=== PATIENT | female | born 1960 | race Two or more races ===

== ENCOUNTER 2017-02-13 07:31 | Emergency (ER) | payer MEDICAID, OTHER ==
[~2017-02-13] VITALS: Ht 160 cm; Wt 85.7 kg
[~2017-02-13 07:31] MED LIST: HYDROCHLOROTHIA25 MG ORAL; NORVASC10 MG ORAL; bactrim PO
[2017-02-13] MEDS ORDERED: LISINOPRIL10 MG ORAL (07:45)
[2017-02-13] MEDS ORDERED: POTASSIUM CHLO20 ME1 ORAL (07:47)
[2017-02-13] MEDS ORDERED: METFORMIN HCL1000 M1 ORAL (07:47)
[2017-02-13] MEDS ORDERED: Famotidine 20 MG/ 2ML VIAL IVP ONE (08:00)
--- NOTE | 2017-02-13 08:03 | Emergency Room Report ---
History of Present Illness General Chief Complaint: Abdominal Pain Source: Patient Present Illness HPI Patient 56-year-old female who presented after increased epigastric pain. Pain had been constant in nature. The pain is described as a sharp poking sensation. She had associated nausea. Pain had been present for 2 days and did not radiate. She denied any black or bloody stools. Patient stated that she been having some improvement with food. She denied prior abdominal surgeries other than fibroid removal. Allergies: Coded Allergies: No Known Allergies (Unverified , 04/05/15) Patient History Past Medical History: see triage record, DM, HTN Reviewed Nursing Documentation: PMH: Agreed, PSxH: Agreed Nursing Documentation-PMH Past Medical History: No History, Except For Hx Hypertension: Yes Review of Systems All Other Systems: negative except mentioned in HPI Physical Exam Vital Signs Date Time Temp Pulse Resp B/P Pulse Ox O2 Delivery O2 Flow Rate FiO2 02/13/17 07:34 97.7 102 16 205/126 98 Room Air Sp02 EP Interpretation: reviewed, normal General Appearance: normal inspection, well appearing, alert, GCS 15 Head: atraumatic ENT: normal ENT inspection, hearing grossly normal, normal voice Neck: normal inspection, full range of motion, supple, no bony tend Respiratory: normal inspection, lungs clear, normal breath sounds, no respiratory distress, no retraction, no wheezing Cardiovascular #1: regular rate, rhythm, no edema Gastrointestinal: normal bowel sounds, no guarding, no hernia, tenderness - epigastric Genitourinary: no CVA tenderness Musculoskeletal: normal inspection, back normal, normal range of motion Neurologic: normal inspection, alert, oriented x3, responsive, plumbing drafter III-XII nml as tested, speech normal Psychiatric: normal inspection, judgement/insight normal, mood/affect normal Skin: normal inspection, normal color, no rash Medical Decision Making Diagnostic Impression: Primary Impression: Gallstones Additional Impression: Hypertension ER Course Patient presented for abdominal pain. Differential diagnoses included ischemic bowel, appendicitis, perforated viscus, abdominal aortic aneurysm, inferior myocardial infarction, viral gastroenteritis Because of complexity of patient's case laboratory testing and imaging studies were ordered. EKG interpretation normal sinus rhythm with a rate of [address] or T wave changes. Patient was given IV Unasyn. She was given morphine for pain. Patient was discussed withThe patient was discussed with Dr. Madrigal who agreed to accept the patient in transfer. Labs Test 5/26/17 07:49 02/13/17 08:29 White Blood Count 7.2 K/UL (4.8-10.8) Red Blood Count 5.48 M/UL (4.20-5.40) Hemoglobin 15.6 G/DL (12.0-16.0) Hematocrit 45.6 % (37.0-47.0) Mean Corpuscular Volume 83 FL (80-99) Mean Corpuscular Hemoglobin 28.4 PG (27.0-31.0) Mean Corpuscular Hemoglobin Concent 34.1 G/DL (32.0-36.0) Red Cell Distribution Width 12.0 % (11.6-14.8) Platelet Count 289 K/UL (150-450) Mean Platelet Volume 7.5 FL (6.5-10.1) Neutrophils (%) (Auto) 65.0 % (45.0-75.0) Lymphocytes (%) (Auto) 25.3 % (20.0-45.0) Monocytes (%) (Auto) 6.4 % (1.0-10.0) Eosinophils (%) (Auto) 2.2 % (0.0-3.0) Basophils (%) (Auto) 1.1 % (0.0-2.0) Prothrombin Time 9.7 SEC (9.30-11.50) Prothromb Time International Ratio 1.0 (0.9-1.1) Activated Partial Thromboplast Time 26 SEC (23-33) Sodium Level 135 mEQ/L (135-145) Potassium Level 3.9 mEQ/L (3.4-4.9) Chloride Level 94 mEQ/L (98-107) Carbon Dioxide Level 25 mEQ/L (20-30) Anion Gap 16 (5-15) Blood Urea Nitrogen 11 mg/dL (7-23) Creatinine 0.6 mg/dL (0.5-0.9) Estimat Glomerular Filtration Rate > 60 mL/min (>60) Glucose Level 392 mg/dL (74-106) Calcium Level 10.9 mg/dL (8.6-10.2) Total Bilirubin 0.6 mg/dL (0.0-1.2) Aspartate Amino Transf (AST/SGOT) 36 U/L (5-40) Alanine Aminotransferase (ALT/SGPT) 52 U/L (3-33) Alkaline Phosphatase 159 U/L (35-104) Troponin I < 0.30 ng/mL (<=0.30) Total Protein 7.7 g/dL (6.6-8.7) Albumin 4.1 g/dL (3.5-5.2) Globulin 3.6 g/dL Albumin/Globulin Ratio 1.1 (1.0-2.7) Lipase 46 U/L (< 60) Urine Color Pale yellow Urine Appearance Clear Urine pH 5 (4.5-8.0) Urine Specific [place] 1.020 (1.005-1.035) Urine Protein Negative (NEGATIVE) Urine Glucose (UA) 4+ (NEGATIVE) Urine Ketones 1+ (NEGATIVE) Urine Occult Blood Negative (NEGATIVE) Urine Nitrite Negative (NEGATIVE) Urine Bilirubin Negative (NEGATIVE) Urine Urobilinogen Normal MG/DL (0.0-1.0) Urine Leukocyte Esterase 1+ (NEGATIVE) Urine RBC 0-2 /HPF (0 - 2) Urine WBC 5-10 /HPF (0 - 2) Urine Squamous Epithelial Cells Few /LPF (NONE/OCC) Urine Bacteria Few /HPF (NONE) Last Vital Signs Date Time Temp Pulse Resp B/P Pulse Ox O2 Delivery O2 Flow Rate FiO2 02/13/17 07:59 99 207/102 02/13/17 07:34 97.7 16 98 Room Air Status: unchanged Disposition: XF SHT-TRM HOSP Condition: Stable Kofi Garcia February 13, 2017 08:03
[2017-02-13 08:08] LABS: PROTHROMBIN TIME 9.7 SEC (9.30-11.50)
[2017-02-13 08:11] LABS: ALANINE AMINOTRANSFERASE 52 U/L (3-33); ALBUMIN/GLOBULIN RATIO 1.1 (1.0-2.7); ANION GAP 16 (5-15); ASPARTATE AMINO TRANSFERASE 36 U/L (5-40); BASOPHILS % (AUTO) 1.1 % (0.0-2.0); CALCIUM 10.9 mg/dL (8.6-10.2); CARBON DIOXIDE 25 mEQ/L (20-30); CHLORIDE 94 mEQ/L (98-107); CREATININE 0.6 mg/dL (0.5-0.9); EOSINOPHILS % (AUTO) 2.2 % (0.0-3.0); GLOMERULAR FILTRATION RATE > 60 mL/min (>60); HEMOLYSIS 23; LIPASE 46 U/L (< 60); LYMPHOCYTES % (AUTO) 25.3 % (20.0-45.0); MEAN CORPUSCULAR HEMOGLOBIN 28.4 PG (27.0-31.0); MEAN CORPUSCULAR HGB CONC 34.1 G/DL (32.0-36.0); MEAN CORPUSCULAR VOLUME 83 FL (80-99); MEAN PLATELET VOLUME 7.5 FL (6.5-10.1); MONOCYTES % (AUTO) 6.4 % (1.0-10.0); PLATELET COUNT 289 K/UL (150-450); POTASSIUM 3.9 mEQ/L (3.4-4.9); RED BLOOD COUNT 5.48 M/UL (4.20-5.40); SODIUM 135 mEQ/L (135-145); TOTAL PROTEIN 7.7 g/dL (6.6-8.7); WHITE BLOOD COUNT 7.2 K/UL (4.8-10.8)
[2017-02-13 08:12] LABS: TROPONIN I < 0.30 ng/mL (<=0.30)
[2017-02-13 08:31] VITALS: BP 168/93
[2017-02-13 08:50] LABS: APPEARANCE,URINE CLEAR; KETONES,URINE 1+ (NEGATIVE); LEUKOCYTE ESTERASE ,URINE 1+ (NEGATIVE); NITRITE,URINE NEGATIVE (NEGATIVE); PH,URINE 5 (4.5-8.0); PROTEIN,URINE NEGATIVE (NEGATIVE); UROBILINOGEN,URINE NORMAL MG/DL (0.0-1.0)
[2017-02-13] MEDS ORDERED: Morphine Sulfate 4mg/ml Inj IVP ONE ×2 (09:15→09:45)
[2017-02-13 09:25] VITALS: BP 172/94
[2017-02-13 09:25] LABS: BACTERIA,URINE FEW /HPF; RBC,URINE 0-2 /HPF (0 - 2); SQUAMOUS EPITHELIAL CELL,UR FEW /LPF (NONE/OCC)
[2017-02-13] MEDS ORDERED: Unasyn 3gm Inj ONE (09:49)
--- NOTE | 2017-02-13 09:58 | Diagnostic Imaging Report ---
Clinical Indication: Epigastric pain, does not radiate Technique: No oral contrast utilized, per emergency room physician request IV administration nonionic contrast. Venous phase spiral acquisition obtained through the abdomen and pelvis. Multiplanar reconstructions were generated. Total dose length product 964 mGycm. CTDIvol(s) 19 mGy. Dose reduction achieved using automated exposure control Comparison: None Findings: The gallbladder contains a gallstone. There is equivocal edema of the gallbladder wall, although this could in part be artifactual due to slight degree of respiratory motion artifact. No biliary ductal dilatation. The liver is diffusely hypoattenuating, consistent with fatty change. There is a nonspecific 12 mm low-attenuation lesion within the anterior left hepatic lobe. The pancreas, spleen, adrenals, kidneys are unremarkable. No retroperitoneal or mesenteric mass or adenopathy. No pelvic mass or adenopathy. The uterus is not visualized, presumably surgically absent. A 2.3 cm cyst is deep to the umbilicus. This demonstrates slight wall thickening but no surrounding inflammation. The appendix is not definitely visualized, but no findings to suggest acute appendicitis are evident. No evidence of diverticulosis or diverticulitis. No small bowel distention. No free or loculated intraperitoneal air or fluid is evident. The distal esophagus, stomach, duodenum are unremarkable. There is a 3 mm noncalcified nodule at the left lung base posteriorly, and a 5 mm noncalcified nodule at the left lung base anteriorly. There are degenerative changes of the thick and lumbar spine. Impression: Cholelithiasis. Equivocal edema of the gallbladder wall. If real, this could indicate acute cholecystitis. Correlate with clinical findings, consider nuclear medicine hepatobiliary scan for further evaluation Diffusely hypoattenuating liver, consistent with fatty change Nonspecific 12 mm anterior left hepatic lobe low-attenuation lesion. Recommend further evaluation with ultrasound to determine cystic or solid 2.3 cm cyst deep to the umbilicus, presumably a urachal cyst. Probably not infected, given the absence of surrounding fat stranding, but infection not completely excludable given the presence of mild wall thickening 2 noncalcified nodules in the left lung base. If there is no significant smoking history, no further followup is necessary. If there is significant smoking history or other risk factors for lung carcinoma, then short interval followup at 6-12 months is recommended Incidental finding degenerative spondylosis The CT scanner at [facility] is accredited by the [employer] and the scans are performed using protocols designed to limit radiation exposure to as low as reasonably achievable to attain images of sufficient resolution adequate for diagnostic evaluation.
[2017-02-13] MEDS ORDERED: Ampicillin/Sulbactam Sod 3 GM in NS 110 ML IVPB ONE (10:00)
[2017-02-13] MEDS ORDERED: metFORMIN 500mg tab ORAL ONE ×2 (10:00→11:30)
[2017-02-13 10:26] VITALS: BP 172/94
== END 2017-02-13 11:01 | disposition short-term general hospital (02) ==
LOC: EMR 08:13
DX: K80.20 Calculus of gallbladder without cholecystitis without obstruction (principal); I10 Essential (primary) hypertension; E11.9 Type 2 diabetes mellitus without complications
CPT/HCPCS: 36415; 74177; 80053; 81003; 82962; 83690; 84484; 85025; 85610; 85730; 93005; 96360; 96374; 96375; 99285; J0295; J2270; J2405; Q9967; S0028

== ENCOUNTER 2018-01-31 00:10 | Emergency (ER) | payer MEDICAID ==
[~2018-01-31] VITALS: Ht 165.1 cm; Wt 81.6 kg
[~2018-01-31 00:10] MED LIST changes: +LISINOPRIL10 MG ORAL; +METFORMIN HCL1000 M1 ORAL; +POTASSIUM CHLO20 ME1 ORAL
[2018-01-31] MEDS ORDERED: CATAPRES0.1 MG ORAL (00:30)
[2018-01-31] MEDS ORDERED: JANUVIA100 MG ORAL (00:30)
[2018-01-31] MEDS ORDERED: ZOCOR10 MG ORAL (00:30)
[2018-01-31] MEDS ORDERED: INSULIN SUBQ (00:31)
[2018-01-31] MEDS ORDERED: Morphine Sulfate 4mg/ml Inj IVP ONE (01:00)
[2018-01-31] MEDS ORDERED: Vancomycin 1.5gm/D5W 250ml 250 ML IVPB ONE (01:00)
[2018-01-31] MEDS ORDERED: Cefepime HCl 1 GM in D5W 55 ML IVPB ONE (01:00)
--- NOTE | 2018-01-31 01:14 | Emergency Room Report ---
History of Present Illness General Chief Complaint: Abdominal Pain Source: Patient Present Illness HPI Is a 57-year-old female with history of high blood pressure and previous tubal ligation. She presents with chief complaint of redness and drainage from her umbilicus. Onset for last 3 days. This is a on and off problem for her. Last time was 2 years ago. Started out as redness around the umbilical area. Today with increasing pain and redness. Also with drainage. Pain is 10 out of 10. No nausea no vomiting. No fever chills. Worse with palpation. Was told that she had a fistula before. Allergies: Coded Allergies: No Known Allergies (Unverified , 04/05/15) Patient History Past Medical History: see triage record, old chart reviewed Past Surgical History: other Pertinent Family History: none Social History: Denies: smoking Now: No Immunizations: other Reviewed Nursing Documentation: PMH: Agreed; PSxH: Agreed Nursing Documentation-PMH Hx Hypertension: Yes Hx Diabetes: Yes Review of Systems Eye: Denies: eye pain, blurred vision ENT: Denies: ear pain, nose congestion, throat swelling Respiratory: Denies: cough, shortness of breath Cardiovascular: Denies: chest pain, palpitations Gastrointestinal: Reports: abdominal pain; Denies: diarrhea, nausea, vomiting Musculoskeletal: Denies: back pain, joint pain Skin: Denies: rash Neurological: Denies: headache, numbness Endocrine: Denies: increased thirst, increased urine Hematologic/Lymphatic: Denies: easy bruising All Other Systems: negative except mentioned in HPI Physical Exam Vital Signs Date Time Temp Pulse Resp B/P (MAP) Pulse Ox O2 Delivery O2 Flow Rate FiO2 01/31/18 00:21 98.1 102 20 182/98 96 Room Air 98.1 vitals with high blood pressure Sp02 EP Interpretation: reviewed, normal General Appearance: well appearing, no apparent distress, alert Head: normocephalic, atraumatic Eyes: bilateral eye PERRL, bilateral eye EOMI ENT: hearing grossly normal, normal pharynx Neck: full range of motion, supple, no meningismus Respiratory: chest non-tender, lungs clear, normal breath sounds Cardiovascular #1: regular rate, rhythm, no murmur Gastrointestinal: normal bowel sounds, no mass, no organomegaly, no bruit, non- distended, other - There is erythema from the inferior aspect of the umbilicus distally to about 5-6 cm. There is purulent discharge from the umbilicus. Tender to palpation. Musculoskeletal: back normal, gait/station normal, normal range of motion Psychiatric: mood/affect normal Skin: warm/dry Procedures Incision and Drainage Incision and Drainage : Consent: Verbal Site: umbilicus I & D Procedure: betadine prep, sterile drapes applied, sterile dressing applied, gauze wick placed Wound Location: abdomen Irrigated w/ Saline (ccs): 500 Anesthesia: 1% Lidocaine Volume Anesthetic (ccs): 5 Patient Tolerated: Well Complications: None Progress Area around the umbilicus cleaned with chlorhexidine. Local anesthesia with 1% lidocaine without epinephrine injected. I made a 2 cm incision. I was able to express small amount of pus. Area irrigated and then packed with iodoform gauze. Patient tolerated procedure without a problem. Medical Decision Making Diagnostic Impression: Primary Impression: Cutaneous abscess of umbilicus Additional Impression: Hyperglycemia due to type 1 diabetes mellitus ER Course Patient with abscess and cellulitis of the umbilicus area. No deep infection. No fistula. No free fluid. Abscess is cutaneous. Her glucose is elevated because she has not taken any insulin for the last 2 days because of the pain. No evidence of DKA. Since there is no deep abscess and labs unremarkable, we' ll discharge home. Her cellulitis is improving after antibiotics. When she was getting IV vancomycin, her face broke out in a flush. Better after I stopped the vancomycin and put her on Benadryl. Since she improved with cefepime I will stop the vancomycin for now. Lab Results Impression labs with elevated glucose CT/MRI/US Diagnostic Results CT/MRI/US Diagnostic Results : Imaging Test Ordered: CT abdomen and pelvis Impression Read by radiologist. No deep infection. Gallstone. Small pocket of fluid with peripheral enhancement at the umbilicus. Cannot exclude abscess. Last Vital Signs Date Time Temp Pulse Resp B/P (MAP) Pulse Ox O2 Delivery O2 Flow Rate FiO2 01/31/18 00:21 98.1 102 20 182/98 96 Room Air 98.1 Status: improved Disposition: HOME, SELF-CARE Condition: Stable Scripts Hydrocodone/Acetaminophen 5-325* (HYDROCODONE/ACETAMINOPHEN 5-325*) 1 Each Tablet 1 TAB ORAL Q6H PRN for For Pain, #15 TAB 0 Refills Prov: REBEKA LYN M.D. 01/31/18 Clindamycin Hcl (CLINDAMYCIN HCL) 300 Mg Capsule 300 MG ORAL THREE TIMES A DAY, #21 CAP Prov: REBEKA LYN M.D. 01/31/18 Additional Instructions: follow-up with your Dr. Or return here in 2 days for recheck. Return sooner if worse. REBEKA LYN M.D. January 31, 2018 01:14
[2018-01-31] MEDS ORDERED: Isovue-300 100ml vial INJ PRN (01:15)
[2018-01-31 01:50] LABS: APPEARANCE,URINE CLEAR; BILIRUBIN, URINE NEGATIVE (NEGATIVE); COLOR,URINE PALE YELLOW; GLUCOSE, URINE (UA) 4+ (NEGATIVE); KETONES,URINE NEGATIVE (NEGATIVE); LEUKOCYTE ESTERASE ,URINE 1+ (NEGATIVE); NITRITE,URINE NEGATIVE (NEGATIVE); PH,URINE 6 (4.5-8.0); PROTEIN,URINE NEGATIVE (NEGATIVE); UROBILINOGEN,URINE NORMAL MG/DL (0.0-1.0)
[2018-01-31 01:57] LABS: BASOPHILS % (AUTO) 0.9 % (0.0-2.0); EOSINOPHILS % (AUTO) 1.3 % (0.0-3.0); HEMOGLOBIN 14.4 G/DL (12.0-16.0); LYMPHOCYTES % (AUTO) 27.3 % (20.0-45.0); MEAN CORPUSCULAR VOLUME 83 FL (80-99); MONOCYTES % (AUTO) 6.8 % (1.0-10.0); NEUTROPHILS % (AUTO) 63.8 % (45.0-75.0); PLATELET COUNT 263 K/UL (150-450); RED BLOOD COUNT 4.95 M/UL (4.20-5.40); RED CELL DISTRIBUTION WIDTH 12.1 % (11.6-14.8); WHITE BLOOD COUNT 8.1 K/UL (4.8-10.8)
[2018-01-31 02:00] LABS: ANION GAP 9 mmol/L (5-15); BLOOD UREA NITROGEN 11 mg/dL (7-18); CARBON DIOXIDE 26 MMOL/L (21-32); CHLORIDE 101 MMOL/L (98-107); CREATININE 0.7 MG/DL (0.55-1.30); POTASSIUM 4.1 MMOL/L (3.5-5.1); SODIUM 136 MMOL/L (136-145)
[2018-01-31 02:03] LABS: INR 0.9 (0.9-1.1)
[2018-01-31 02:06] LABS: ALANINE AMINOTRANSFERASE 48 U/L (12-78); ALBUMIN 3.6 G/DL (3.4-5.0); ALBUMIN/GLOBULIN RATIO 0.8 (1.0-2.7); ALKALINE PHOSPHATASE 158 U/L (46-116); ASPARTATE AMINO TRANSFERASE 20 U/L (15-37); BILIRUBIN,TOTAL 0.6 MG/DL (0.2-1.0)
[2018-01-31 02:15] VITALS: BP 166/94
[2018-01-31] MEDS ORDERED: Morphine Sulfate 10mg/ml Inj IVP ONE (03:30)
--- NOTE | 2018-01-31 03:31 | Diagnostic Imaging Report ---
EXAM: CT Abdomen and Pelvis With Intravenous Contrast CLINICAL HISTORY: ABD PAIN TECHNIQUE: Axial computed tomography images of the abdomen and pelvis with intravenous contrast. CTDI is 30 mGy and DLP is 1577 mGy-cm. One or more of the following dose reduction techniques were used: automated exposure control, adjustment of the mA and/or kV according to patient size, use of iterative reconstruction technique. COMPARISON: No relevant prior studies available. FINDINGS: Lung bases: Unremarkable. No mass. No consolidation. ABDOMEN: Liver: Hepatomegaly. Gallbladder and bile ducts: Cholelithiasis. No ductal dilation. Pancreas: Unremarkable. No mass. No ductal dilation. Spleen: Unremarkable. No splenomegaly. Adrenals: Unremarkable. No mass. Kidneys and ureters: Possible punctate nonobstructing right renal stone. Stomach and bowel: Unremarkable. No obstruction. No mucosal thickening. PELVIS: Appendix: No findings to suggest acute appendicitis. Bladder: Unremarkable. No mass. Reproductive: Unremarkable as visualized. ABDOMEN and PELVIS: Intraperitoneal space: Unremarkable. No free air. No significant fluid collection. Bones/joints: No acute fracture. No dislocation. Soft tissues: Small pocket of fluid with peripheral enhancement at the umbilicus. Vasculature: Unremarkable. No abdominal aortic aneurysm. Lymph nodes: Unremarkable. No enlarged lymph nodes. IMPRESSION: 1. Cholelithiasis. 2. Possible punctate nonobstructing right renal stone. 3. Small pocket of fluid with peripheral enhancement at the umbilicus. Cannot exclude abscess.
[2018-01-31 04:12] VITALS: BP 154/85
[2018-01-31] MEDS ORDERED: DiphenhydrAMINE 50mg/ml Inj IVP ONE (04:15)
[2018-01-31] MEDS ORDERED: HYDROCODON-ACE1 EA15 ORAL (04:42)
[2018-01-31] MEDS ORDERED: CLINDAMYCIN HC300 MG ORAL (04:42)
[2018-01-31 04:55] VITALS: BP 154/85
== END 2018-01-31 04:55 | disposition home or self-care (01) ==
LOC: EMR 01:54
DX: L02.216 Cutaneous abscess of umbilicus (principal); E10.65 Type 1 diabetes mellitus with hyperglycemia; I10 Essential (primary) hypertension; K80.20 Calculus of gallbladder without cholecystitis without obstruction
CPT/HCPCS: 10060; 36415; 74177; 80053; 81003; 82962; 83605; 85025; 85610; 85730; 87040; 87070; 87086; 87205; 96374; 96375; 99284; J0692; J1200; J1815; J2270; J2405; J3370; Q9967

== ENCOUNTER 2018-02-02 10:22 | Emergency (ER) | payer MEDICAID ==
[~2018-02-02] VITALS: Ht 157.5 cm; Wt 81.2 kg
[~2018-02-02 10:22] MED LIST changes: +CATAPRES0.1 MG ORAL; +CLINDAMYCIN HC300 MG ORAL; +HYDROCODON-ACE1 EA15 ORAL; +INSULIN SUBQ; +JANUVIA100 MG ORAL; +ZOCOR10 MG ORAL
[2018-02-02 10:53] VITALS: BP 156/92
[2018-02-02 10:56] VITALS: BP 156/92
--- NOTE | 2018-02-02 13:35 | Emergency Room Report ---
History of Present Illness General Chief Complaint: Wound Recheck/Suture Removal Source: Patient, Medical Record Present Illness HPI 57-year-old female presents ED for wound check. Status post I and D of abscess to abdominal wall few days ago. Placed on antibiotics. Packing in place. Patient is here for wound check. States pain is overall improved. Denies fevers or chills. States she is compliant with her antibiotics. No other aggravating relieving factors. Denies any other associated symptoms Allergies: Coded Allergies: No Known Allergies (Unverified , 04/05/15) Patient History Past Medical History: DM, HTN Past Surgical History: none Pertinent Family History: none Social History: Denies: smoking, alcohol use, drug use Last Menstrual Period: 2005 Now: No Immunizations: UTD Reviewed Nursing Documentation: PMH: Agreed; PSxH: Agreed Nursing Documentation-PMH Past Medical History: No History, Except For Hx Hypertension: Yes Hx Diabetes: Yes Review of Systems All Other Systems: negative except mentioned in HPI Physical Exam Vital Signs Date Time Temp Pulse Resp B/P (MAP) Pulse Ox O2 Delivery O2 Flow Rate FiO2 02/02/18 10:28 98.1 89 18 159/97 98 Room Air 98.1 Sp02 EP Interpretation: reviewed, normal General Appearance: no apparent distress, alert, GCS 15, non-toxic Head: normocephalic Eyes: bilateral eye normal inspection, bilateral eye PERRL ENT: normal ENT inspection Neck: normal inspection Respiratory: normal inspection Cardiovascular #1: normal inspection Gastrointestinal: normal bowel sounds, non tender, soft, non-distended, no guarding, no rebound Rectal: deferred Genitourinary: no CVA tenderness Musculoskeletal: normal inspection Neurologic: other - abdominal wall abscess. no surrounding induration/ erythema. no discharge Psychiatric: normal inspection Skin: normal inspection Lymphatic: normal inspection Medical Decision Making Diagnostic Impression: Primary Impression: Encounter for abscess packing removal ER Course Hospital Course 57-year-old F presents to ED for wound check. s/p I&D abdominal abscess Clinical course Patient placed on stretcher. packing removed. Wound appears clean dry and intact with induration and erythema improved compared to prior visit. No additional intervention at this time Diagnosis - encounter for wound re-check, abscess Stable and discharged to home. continue abx as directed. Followup with PMD. Return to ED if any signs of infection develop Last Vital Signs Date Time Temp Pulse Resp B/P (MAP) Pulse Ox O2 Delivery O2 Flow Rate FiO2 02/02/18 10:56 98.1 69 18 156/92 98 Room Air 98.1 Status: improved Disposition: HOME, SELF-CARE Condition: Stable Referrals: [facility],REFERRING (PCP) Patient Instructions: Wound Packing Peter Garrett MD February 02, 2018 13:35
== END 2018-02-02 10:57 | disposition home or self-care (01) ==
LOC: EMR 10:44
DX: Z48.03 Encounter for change or removal of drains (principal); L02.211 Cutaneous abscess of abdominal wall; E11.9 Type 2 diabetes mellitus without complications; I10 Essential (primary) hypertension
CPT/HCPCS: 99283

== ENCOUNTER 2018-09-28 18:10 | Emergency (ER) | payer MEDICAID ==
[~2018-09-28] VITALS: Ht 162.6 cm; Wt 72.6 kg
[2018-09-28 18:30] VITALS: BP 138/93
--- NOTE | 2018-09-28 18:30 | NUR ---
ED Nurse Note: pt walked in to ED with spouse due to non-radiated cp that started yesterday. per pt, it constant and sharp pain. pt also c/o severe bodyache. skin hot to touch. 100 F oral temp at the bed side. tachycardia noted on clinical research monitor. Dr. Angeles notified. ekg done. AAO x4. respirations even an labored noted. breaths sound clear. no nausea or vomiting reported. no fever or chills at home. pt denies any coughing. on clinical research monitor. will wait for the further order. mask provide.
--- NOTE | 2018-09-28 18:51 | Emergency Room Report ---
History of Present Illness General Chief Complaint: Chest Pain Source: Patient Present Illness HPI 58-year-old female with pmhx of HTN, DM, HLD p/w chest pain , shortness of breath, myalgias for 2 days. Chest pain Localized to substernal area, no radiation to back or other areas, sharp in nature, gradual in onset, multiple episodes. +SOB. Denies palpitations, diaphoresis, n/v. Also has dry cough. Denies any fever or chills. Patient has never had a stress test. Allergies: Coded Allergies: No Known Allergies (Unverified , 04/05/15) Patient History Past Medical History: see triage record Past Surgical History: none Pertinent Family History: none Now: No Reviewed Nursing Documentation: PMH: Agreed; PSxH: Agreed Nursing Documentation-PMH Past Medical History: No History, Except For Hx Hypertension: Yes Hx Diabetes: Yes Review of Systems All Other Systems: negative except mentioned in HPI Physical Exam Vital Signs Date Time Temp Pulse Resp B/P (MAP) Pulse Ox O2 Delivery O2 Flow Rate FiO2 09/28/18 18:13 100.6 136 20 125/82 98 Room Air Sp02 EP Interpretation: reviewed, normal General Appearance: alert, GCS 15, moderate distress Head: normocephalic, atraumatic Eyes: bilateral eye normal inspection, bilateral eye PERRL, bilateral eye EOMI ENT: normal ENT inspection, normal pharynx, normal voice, moist mucus membranes Neck: normal inspection, full range of motion, supple Respiratory: normal breath sounds, speaking full sentences Cardiovascular #1: no edema, tachycardia Cardiovascular #2: 2+ radial (R), 2+ radial (L) Gastrointestinal: normal inspection, non tender, soft, non-distended, no guarding Musculoskeletal: normal inspection, back normal, normal range of motion, non- tender Neurologic: normal inspection, alert, oriented x3, responsive, motor strength/ tone normal, sensory intact, normal gait, speech normal Psychiatric: normal inspection, judgement/insight normal, memory normal Skin: normal inspection, normal color, no rash, warm/dry, well hydrated, normal turgor Medical Decision Making Diagnostic Impression: Primary Impression: Chest pain Additional Impression: UTI (urinary tract infection) ER Course 58-year-old female with chest pain, shortness of breath, myalgias DDX: ACS vs.vs. URI, flu, pneumonia vs. gastritis/GERD vs. pneumothorax PE on differential however at this time there are other more likely diagnoses. Plan: IV access, obtain labs including troponin, EKG, CXR cultures and lactate Anticipate admission ER course: Patient was treated with ASA. Patient has remained on a monitor, tachycardia has improved after fluids +few bacteria on UA, given ceftriaxone Disposition: Patient requires admission for chest pain. transfer to [facility] Dr Romo Please note that this Emergency Department Report was dictated using iTaggitbehavioral pediatrician technology software, occasionally this can lead to erroneous entry secondary to interpretation by the dictation equipment. EKG Diagnostic Results EP Interpretation: Yes Rate: normal Rhythm: NSR ST Segments: No acute changes ASA given to patient: Yes Rhythm Strip EP Interpretation: Yes [id number] Rhythm: NSR, no PVCs, no ectopy Chest X-ray CXR: Ordered: Yes 1 view Indication: Shortness of breath EP interpretation: Yes Interpretation: No consolidation, no effusion, no PTX, no acute cardiopulmonary disease Impression: No acute disease Electronically signed by Anaid Angeles MD Laboratory Tests Test 09/28/18 18:40 White Blood Count 14.3 K/UL (4.8-10.8) H Red Blood Count 4.52 M/UL (4.20-5.40) Hemoglobin 13.4 G/DL (12.0-16.0) Hematocrit 37.7 % (37.0-47.0) Mean Corpuscular Volume 83 FL (80-99) Mean Corpuscular Hemoglobin 29.6 PG (27.0-31.0) Mean Corpuscular Hemoglobin Concent 35.4 G/DL (32.0-36.0) Red Cell Distribution Width 11.6 % (11.6-14.8) Platelet Count 363 K/UL (150-450) Mean Platelet Volume 6.3 FL (6.5-10.1) L Neutrophils (%) (Auto) 75.9 % (45.0-75.0) H Lymphocytes (%) (Auto) 16.9 % (20.0-45.0) L Monocytes (%) (Auto) 6.3 % (1.0-10.0) Eosinophils (%) (Auto) 0.1 % (0.0-3.0) Basophils (%) (Auto) 0.8 % (0.0-2.0) Urine Color Pale yellow Urine Appearance Clear Urine pH 5 (4.5-8.0) Urine Specific [place] 1.015 (1.005-1.035) Urine Protein Negative (NEGATIVE) Urine Glucose (UA) 4+ (NEGATIVE) H Urine Ketones 2+ (NEGATIVE) H Urine Blood Negative (NEGATIVE) Urine Nitrite Negative (NEGATIVE) Urine Bilirubin Negative (NEGATIVE) Urine Urobilinogen Normal MG/DL (0.0-1.0) Urine Leukocyte Esterase 1+ (NEGATIVE) H Urine RBC 0-2 /HPF (0 - 2) Urine WBC 2-4 /HPF (0 - 2) Urine Squamous Epithelial Cells Few /LPF (NONE/OCC) Urine Amorphous Sediment Few /LPF (NONE) H Urine Bacteria Few /HPF (NONE) Sodium Level 132 MMOL/L (136-145) L Potassium Level 3.2 MMOL/L (3.5-5.1) L Chloride Level 93 MMOL/L (98-107) L Carbon Dioxide Level 27 MMOL/L (21-32) Anion Gap 12 mmol/L (5-15) Blood Urea Nitrogen 10 mg/dL (7-18) Creatinine 0.9 MG/DL (0.55-1.30) Estimate Glomerular Filtration Rate > 60 mL/min (>60) Glucose Level 330 MG/DL (74-106) H Lactic Acid Level 1.60 mmol/L (0.4-2.0) Calcium Level 10.2 MG/DL (8.5-10.1) H Total Bilirubin 1.5 MG/DL (0.2-1.0) H Direct Bilirubin 0.4 MG/DL (0.0-0.3) H Aspartate Amino Transferase (AST) 13 U/L (15-37) L Alanine Aminotransferase (ALT) 28 U/L (12-78) Alkaline Phosphatase 117 U/L (46-116) H Troponin I 0.000 ng/mL (0.000-0.056) Total Protein 8.5 G/DL (6.4-8.2) H Albumin 3.6 G/DL (3.4-5.0) Globulin 4.9 g/dL Albumin/Globulin Ratio 0.7 (1.0-2.7) L Microbiology Date/Time Source Procedure Growth Status 09/28/18 18:40 Nasal Nares Influenza Types A,B Antigen (DONATO) - Final Complete Last Vital Signs Date Time Temp Pulse Resp B/P (MAP) Pulse Ox O2 Delivery O2 Flow Rate FiO2 09/28/18 18:13 100.6 136 20 125/82 98 Room Air Disposition: XFER SHT-TRM HOSP Condition: Serious RetinoAnaid M.D. Sep 28, 2018 18:51
--- NOTE | 2018-09-28 19:11 | NUR ---
HAND-OFF: Report given to HANNAH Godoy.
[2018-09-28 19:15] LABS: BASOPHILS % (AUTO) 0.8 % (0.0-2.0); EOSINOPHILS % (AUTO) 0.1 % (0.0-3.0); HEMATOCRIT 37.7 % (37.0-47.0); HEMOGLOBIN 13.4 G/DL (12.0-16.0); LYMPHOCYTES % (AUTO) 16.9 % (20.0-45.0); MEAN CORPUSCULAR VOLUME 83 FL (80-99); MONOCYTES % (AUTO) 6.3 % (1.0-10.0); NEUTROPHILS % (AUTO) 75.9 % (45.0-75.0); PLATELET COUNT 363 K/UL (150-450); RED BLOOD COUNT 4.52 M/UL (4.20-5.40); RED CELL DISTRIBUTION WIDTH 11.6 % (11.6-14.8); WHITE BLOOD COUNT 14.3 K/UL (4.8-10.8)
[2018-09-28 19:20] LABS: APPEARANCE,URINE CLEAR; BILIRUBIN, URINE NEGATIVE (NEGATIVE); COLOR,URINE PALE YELLOW; GLUCOSE, URINE (UA) 4+ (NEGATIVE); KETONES,URINE 2+ (NEGATIVE); LEUKOCYTE ESTERASE ,URINE 1+ (NEGATIVE); NITRITE,URINE NEGATIVE (NEGATIVE); PH,URINE 5 (4.5-8.0); PROTEIN,URINE NEGATIVE (NEGATIVE); UROBILINOGEN,URINE NORMAL MG/DL (0.0-1.0)
[2018-09-28 19:21] LABS: ANION GAP 12 mmol/L (5-15); BLOOD UREA NITROGEN 10 mg/dL (7-18); CALCIUM 10.2 MG/DL (8.5-10.1); CARBON DIOXIDE 27 MMOL/L (21-32); CHLORIDE 93 MMOL/L (98-107); CREATININE 0.9 MG/DL (0.55-1.30); POTASSIUM 3.2 MMOL/L (3.5-5.1); SODIUM 132 MMOL/L (136-145)
[2018-09-28 19:25] VITALS: BP 135/90
[2018-09-28 19:27] VITALS: BP 135/90
[2018-09-28 19:36] LABS: ALANINE AMINOTRANSFERASE 28 U/L (12-78); ALBUMIN 3.6 G/DL (3.4-5.0); ALBUMIN/GLOBULIN RATIO 0.7 (1.0-2.7); ALKALINE PHOSPHATASE 117 U/L (46-116); ASPARTATE AMINO TRANSFERASE 13 U/L (15-37); BILIRUBIN,TOTAL 1.5 MG/DL (0.2-1.0)
[2018-09-28 19:37] LABS: BILIRUBIN,DIRECT 0.4 MG/DL (0.0-0.3)
[2018-09-28] MEDS ORDERED: cefTRIAXone 1 GM in NS 55 ML IVPB ONE (20:45)
[2018-09-28 21:20] VITALS: BP 133/91
[2018-09-28 23:36] VITALS: BP 130/90
[2018-09-28 23:53] VITALS: BP 130/90
--- NOTE | 2018-09-28 23:55 | NUR ---
ED Nurse Note: PT is transfered to [facility], and report given to Artur YOUNG . pt vital signs, condition and status, and labs has been reported to ulisesving RN and PAM prior to DC. pt has transfered with all belongings.
--- NOTE | 2018-09-29 11:48 | Diagnostic Imaging Report ---
Indication: Chest pain Technique: One view of the chest Comparison: 04/05/2015 Findings: Low lung volumes. Lungs pleural spaces are clear. There is crowding of the bronchovascular markings. The pleural spaces are clear. The heart size is normal. No significant interim change Impression: No acute process
--- NOTE | 2018-09-29 16:03 | Cardiology Report ---
APPROVED REPORT EKG Measurement Heart [id number] Sinus tachycardia Otherwise normal ECG
== END 2018-09-28 23:57 | disposition short-term general hospital (02) ==
LOC: EMR 18:47
DX: R07.89 Other chest pain (principal); R06.02 Shortness of breath; M79.10 Myalgia, unspecified site; N39.0 Urinary tract infection, site not specified; I10 Essential (primary) hypertension; E11.9 Type 2 diabetes mellitus without complications; E78.5 Hyperlipidemia, unspecified
CPT/HCPCS: 36415; 71045; 80053; 81003; 82248; 83605; 84484; 85025; 86710; 87040; 93005; 96361; 96365; 99285